=== PATIENT | male | born 1950 | race Two or more races ===

== ENCOUNTER 2023-02-16 07:04 | Emergency (ER) | payer OTHER ==
[~2023-02-16] VITALS: Ht 167.6 cm; Wt 67.6 kg
[2023-02-16] MEDS ORDERED: CALTRATE 600 +1 EAC1 PO (07:17)
[2023-02-16] MEDS ORDERED: ANTIVERT25 M2 PO (07:18)
== END 2023-02-16 10:05 | disposition left against medical advice (07) ==
LOC: ER 07:04
DX: Z53.21 Procedure and treatment not carried out due to patient leaving prior to being seen by health care provider (principal)

== ENCOUNTER → 2023-02-24 | Emergency (ER) | payer OTHER ==
[~2023-02-24] VITALS: Ht 167.6 cm; Wt 67.6 kg
[~2023-02-24] MED LIST: ANTIVERT25 M2 PO; CALTRATE 600 +1 EAC1 PO
== END | disposition left against medical advice (07) ==
LOC: ER
DX: Z53.21 Procedure and treatment not carried out due to patient leaving prior to being seen by health care provider (principal)